=== PATIENT | female | born 1950 | race Caucasian/White ===

== ENCOUNTER → 2019-06-03 | Outpatient (CLI) | payer MEDICARE ==
[~2019-06-03] MED LIST: REGADENOSON 0.4 MG/5 ML DISP.SYRIN. IV ONE
--- NOTE | 2019-06-03 09:54 | CARD ---
MR#: [id number] Date of Study: 06/03/2019 Ordering Physician: FAZAL SIBLEY, Referring Physician: FAZAL SIBLEY, Tech: Radha Flores APPROVED REPORT EXAM: Two-dimensional and M-mode echocardiogram with Doppler and color Doppler. Other Information Quality : AverageHR: 91bpm INDICATION Arrhythmia 2D DIMENSIONS RVDd3.2 (2.9-3.5cm)Left Atrium(2D)3.5 (1.6-4.0cm) IVSd1.2 (0.7-1.1cm)Aortic Root(2D)2.2 (2.0-3.7cm) LVDd4.1 (3.9-5.9cm)LVOT Diameter2.5 (1.8-2.4cm) PWd1.0 (0.7-1.1cm)LVDs3.0 (2.5-4.0cm) FS (%) 28.0 %SV41.1 ml LVEF(%)54.7 (>50%) Aortic Valve AoV Peak Dawson.180.9cm/sAoV VTI33.5cm AO Peak GR.13.1mmHgLVOT Peak Dawson.142.1cm/s LVOT VTI 32.13cmAO Mean GR.6mmHg YUMIKO (VMAX)3.06cx2YPN (VTI)4.65cm2 Mitral Valve MV E Jukosizl58.5cm/sMV DECEL EIPR938gy MV A Qbuqelmc47.9cm/sMV E Mean Gr.2mmHg MV JQS71ioO/A Ratio0.9 MVA (PHT)3.03cm2 TDI E/Lateral E'9.0E/Medial E'12.0 Pulmonary Valve PV Peak Hegcctxx857.0cm/sPV Peak Grad.5mmHg Tricuspid Valve TR P. Ayfckdvx650hw/sRAP WXATGGJE1iyPr TR Peak Gr.87soWiEWFY22aePf Pulmonary Vein S1 Iwxqshrb15.0cm/sD2 Qsprhzky88.7cm/s LEFT VENTRICLE The left ventricle is normal size. There is borderline to mild concentric left ventricular hypertroph y. The left ventricular systolic function is normal. The Ejection Fraction is 55%. There is normal LV segmental wall motion. Transmitral Doppler flow pattern is Grade I-abnormal relaxation pattern. RIGHT VENTRICLE The right ventricle is normal size. There is normal right ventricular wall thickness. The right ventr icular systolic function is normal. ATRIA The left atrium size is normal. The right atrium size is normal. The interatrial septum is intact wit h no evidence for an atrial septal defect or patent foramen ovale as noted on 2-D or Doppler imaging. AORTIC VALVE The aortic valve is thickened but opens well. Doppler and Color Flow revealed no significant aortic r egurgitation. There is no significant aortic valvular stenosis. MITRAL VALVE The mitral valve is normal in structure and function. There is no evidence of mitral valve prolapse. There is no mitral valve stenosis. Doppler and Color Flow revealed no mitral valve regurgitation note d. TRICUSPID VALVE The tricuspid valve is normal in structure and function. Doppler and Color Flow revealed trace tricus pid regurgitation with an estimated PAP of 25 mmHg. There is no tricuspid valve stenosis. PULMONIC VALVE The pulmonic valve is not well visualized. Doppler and Color Flow revealed trace pulmonic valvular re gurgitation. GREAT VESSELS The aortic root is normal in size. The ascending aorta is normal in size. The IVC is normal in size a nd collapses >50% with inspiration. PERICARDIAL EFFUSION There is no evidence of significant pericardial effusion. Critical Notification Critical Value: No <Conclusion> The left ventricular systolic function is normal. The Ejection Fraction is 55%. Transmitral Doppler flow pattern is Grade I-abnormal relaxation pattern. Trace tricuspid regurgitation with an estimated PAP of 25 mmHg. There is no evidence of significant pericardial effusion. Signed by : Fazal Sibley, Electronically Approved : 06/03/2019 09:54:07
--- NOTE | 2019-06-03 12:54 | RAD ---
MR#: [id number] Date of Study: 06/03/2019 Ordering Physician: FAZAL ROBERT, Referring Physician: ASHLEY LEAVITT Tech: RT Jessica (R) (N) APPROVED REPORT Test Type: Pharmacological Stress Nurse/Tech: Amber Hamilton RN Test Indications: chest pain Cardiac History: HTN, DM Medications: See Electronic Medical Record Medical History: See Electronic Medical Record Resting ECG: SR Resting Heart Rate: 53 bpm Resting Blood Pressure: 140/85mmHg Pretest Chest Pain: None Nurse/Tech Notes Lungs CTA, S1S2 Consent: The procedure was explained to the patient in lay terms. Informed consent was witnessed. Jimmy eout was entered into [employer]. History and Stress Test performed by Amber Hamilton RN Pharm. Details Pharmacologic stress testing was performed using 0.4mg per 5ml of regadenoson given intravenously ove r 7-10 seconds. Stress Symptoms Headache, SOA, Nausea/vomiting POST EXERCISE Reason for Termination: Infusion complete Max HR: 117 bpm Max Blood Pressure: 192/79mmHg Blood Pressure response to exercise: Normal blood pressure response during stress. Heart Rate response to exercise: normal response Chest Pain: No. Arrhythmia: No. INTERPRETATION Stress EKG Conclusion: The resting EKG shows a sinus rhythm with LVH and nonspecific ST-T wave change s. The stress EKG shows no significant changes from baseline. No EKG evidence of stressed induced ischemia. Imaging Protocol IMAGE PROTOCOL: Rest Tc-99m/stress Tc-99m 1 day Rest: Stress: Viability: Radiopharm.Tc99m JfzhwkuliAm40a Sestamibi Mdnp40vJj 31mCi Duration 13min. 13min. Img Date 06/03/2019 06/03/2019 Inj-Img Autg08ajw. 60min. Rest Admin Site:IV - Right ForearmAdministrator:JING Ron, ARRT (R)(N) Stress Admin Site: IV - Right ForearmAdministrator: Jorge Ferguson RT (R)(N) STRESS DATA End Diast. Vol.36.0mlLVEDV index BSA22.0ml End Syst. Vol.3.0mlLVESV index BSA2.0ml Myocardial Mass79.0gEject. Jgnfqyzm65.0% Stress Scores Regional WT0.00Summed WT11.00 Regional WM0.00Summed WM0.00 LV Perfusion The stress scans showed no significant defects. The rest scans showed no significant defects. Nuclear imaging shows no reversible ischemia or infarct. Wall Motion Left ventricular systolic function is normal with no regional wall motion abnormalities and an ejecti on fraction of greater than 75%. LV Perf. Quant 17 Seg. SSS0.00 17 Seg. SRS0.00 17 Seg. SDS0.00 Stress Defect Extent (% LAD)0.00Rest Defect Extent (% LAD)0.00Rev. Defect Extent (% LAD)0.00 Stress Defect Extent (% LCX) 0.00Rest Defect Extent (% LCX)0.00Rev. Defect Extent (% LCX)0.00 Stress Defect Extent (% RCA)0.00Rest Defect Extent (% RCA)0.00Rev. Defect Extent (% RCA)0.00 Stress Defect Extent (% JOHN)0.00Rest Defect Extent (% JOHN)0.00Rev. Defect Extent (% JOHN)0.00 Conclusion 1. No EKG evidence of stress-induced ischemia. 2. Nuclear imaging shows no reversible ischemia or infarct. 3. Normal left ventricular systolic function with an ejection fraction of greater than 75%. 4. Low risk Lexiscan nuclear stress test. Signed by : Michael Rosenbaum MD Electronically Approved : 06/03/2019 12:54:08
== END ==
LOC: NM 09:14
PROVIDERS: ATTEND Internal Medicine Cardiovascular Disease
DX: I51.7 Cardiomegaly (principal); I49.9 Cardiac arrhythmia, unspecified
CPT/HCPCS: 78452; 93017; 93306; J2785

== ENCOUNTER → 2019-07-15 | Outpatient (CLI) | payer MEDICARE ==
[~2019-07-15] MED LIST changes: +ACET500T68 PO; +ALPR0.5T PO; +APIX5TAB PO; +CYCL10TA2 PO; +FLUO40CA2 PO; +HYDR50TA6 PO; +LISI-334 PO; +METF500T16 PO; +METO50TA4 PO; +MULT400C3 PO; +POLY17PO29 PO; -REGADENOSON 0.4 MG/5 ML DISP.SYRIN. IV ONE; +SIMV20TA18 PO
== END | disposition home or self-care (01) ==
LOC: LAB 13:49
PROVIDERS: ATTEND Internal Medicine Cardiovascular Disease
DX: Z03.818 Encounter for observation for suspected exposure to other biological agents ruled out (principal); I49.5 Sick sinus syndrome
CPT/HCPCS: 36415; 87635

== ENCOUNTER 2019-07-19 07:07 | Observation (INO) | payer MEDICARE ==
[2019-07-19] VITALS (20 sets, daily range): BP systolic 87–150; BP diastolic 47–92
[~2019-07-19] VITALS: Ht 152.4 cm; Wt 67.0 kg
[2019-07-19 07:43] LABS: HEMATOCRIT 39.8 % (36.0-47.0); HEMOGLOBIN 13.8 g/dL (12.0-15.5); RED BLOOD COUNT 4.52 x10^6/uL (3.50-5.40); RED CELL DISTRIBUTION WIDTH 13.4 % (11.5-14.5); WHITE BLOOD COUNT 9.5 x10^3/uL (4.0-11.0)
[2019-07-19] MEDS ORDERED: BACITRACIN 50,000 UNIT in IV NORMAL SALINE 250ML 250 ML IRR ONE (07:45)
--- NOTE | 2019-07-19 07:45 | EKG ---
[facility] [address] [place] [address] Test Date: 2019-07-19 Test Time: 07:40:14 Pat Name: MAGDA GARCIA Department: Room: Gender: F Automation Manager: : 1950 Requested By: FAZAL ROBERT Order Number: [id number] Reading MD: Michael Rosenbaum Measurements Intervals [place] Rate: 79 P: 242 [place]: 116 QRS: -38 QRSD: 112 T: 71 QT: 426 QTc: 490 Interpretive Statements SINUS RHYTHM LEFT ANTERIOR FASCICULAR BLOCK INCOMPLETE RIGHT BUNDLE BRANCH BLOCK LVH WITH REPOLARIZATION ABNORMALITY PROLONGED QT Electronically Signed On 07-19-2019 11:04:35 CDT by Michael Rosenbaum
[2019-07-19] MEDS ORDERED: LIDOCAINE 2%/EPI 1:100,000 20 ML VIAL. ONE (07:46)
[2019-07-19] MEDS ORDERED: MIDAZOLAM HCL/PF 5 MG/5 ML VIAL. ONE (07:46)
[2019-07-19] MEDS ORDERED: fentaNYL PF VIAL 100 MCG/2 ML VIAL ONE (07:46)
[2019-07-19] MEDS ORDERED: ceFAZolin SODIUM IV Push 1 GM VIAL. IVP ONE ×3 (07:47→15:30)
[2019-07-19] MEDS ORDERED: METF500T16 PO (07:53)
[2019-07-19] MEDS ORDERED: POLY17PO29 PO (07:53)
[2019-07-19] MEDS ORDERED: ACET500T68 PO (07:53)
[2019-07-19] MEDS ORDERED: SIMV20TA18 PO (07:53)
[2019-07-19] MEDS ORDERED: FLUO40CA2 PO (07:53)
[2019-07-19] MEDS ORDERED: METO50TA4 PO (07:53)
[2019-07-19] MEDS ORDERED: CYCL10TA2 PO (07:53)
[2019-07-19] MEDS ORDERED: HYDR50TA6 PO (07:53)
[2019-07-19] MEDS ORDERED: LISI-334 PO (07:53)
[2019-07-19] MEDS ORDERED: APIX5TAB PO (07:53)
[2019-07-19 07:54] LABS: PROTHROMBIN TIME PATIENT 13.1 SEC (11.7-14.0)
[2019-07-19] MEDS ORDERED: ALPR0.5T PO (07:54)
[2019-07-19 07:56] LABS: CALCIUM 9.6 mg/dL (8.5-10.1); CREATININE 0.9 mg/dL (0.6-1.0); GFR 62.1; POTASSIUM 3.2 mmol/L (3.5-5.1)
[2019-07-19] MEDS ORDERED: LIDOCAINE 2%/EPI 1:100,000 20 ML VIAL. IJ ONE (08:15)
[2019-07-19] MEDS ORDERED: fentaNYL PF VIAL 100 MCG/2 ML VIAL IV ONE (08:15)
[2019-07-19] MEDS ORDERED: MIDAZOLAM HCL/PF 5 MG/5 ML VIAL. IV ONE (08:15)
--- NOTE | 2019-07-19 09:41 | PDOC ---
MODERATE SEDATION ASSESSMENT RISKS/ALTERNATIVES Risks/Alternatives Risks and alternatives of this type of sedation and procedure discussed with: RISK/ALTERNATIVES: Patient H & P ON CHART H & P H & P on chart and reviewed for co-morbid conditions and appropriate labs. H&P ON CHART: Yes STATUS PREG STATUS ASSESSED: N/A MEDS/ALLERGIES REVIEWED Meds/Allergies Reviewed Medications and Allergies including time and route of recently administered narcotics and sedatives. MEDS/ALLERGIES REVIEWED: Yes ASA RATING ASA RATING: III AIRWAY ASSESSMENT Airway Assessment Airway patency, oral function limitations, presence of caps, crowns, dentures, partials, and ability to extend neck assessed. AIRWAY ASSESSMENT: Yes MALLAMPATI SCORE MALLAMPATI SCORE: II PRE-SEDATION ASSESSMENT PRE-SEDATION ASSESSMENT: Yes FAZAL ROBERT MD July 19, 2019 09:41
[2019-07-19] MEDS ORDERED: NO ANTICOAGULANT THERAPY. MC PRN (09:45)
--- NOTE | 2019-07-19 09:55 | NUR ---
The patient, MAGDA GARCIA, 69 y/o, F admitted by FAZAL ROBERT MD, was given written information regarding hospital policies, unit procedures and contact persons. Valuables were checked and left at bedside with patient. Educated patient on s/p PPm instructions for inpatient. Patient verbalized understanding. Pgd admitting for orders to resume home medications. Pending return call
--- NOTE | 2019-07-19 09:59 | CARD ---
MR#: [id number] Date of Study: 07/19/2019 Ordering Physician: FAZAL SIBLEY, Referring Physician: FAZAL SIBLEY, Tech: APPROVED REPORT PROCEDURES Implantation of Medtronic dual-chamber permanent pacemaker Sedation Time: 70 Minutes Fluoro Time: 1.9 Minutes Dose: 2.60 Gycm2 INDICATIONS Tachycardia-bradycardia syndrome, sick sinus syndrome PROCEDURE After explaining the risks, benefits, and alternative options, informed consent was obtained from the patient. The patient was brought to the cardiac catheterization lab and the left chest and shoulder were prepp ed and draped in a sterile manner. 30 cc of 2% lidocaine was infiltrated into the skin and subcutaneous tissues for local anesthesia. A n incision was made over the left infraclavicular fossa and using blunt dissection and cautery of poc ket was created. Venous access was obtained the left subclavian vein and 9 and 7 Tong[place] sheaths were inserted. A Medtronic bipolar active fixation right ventricular lead model 4076, serial number [id number] was advanced under fluoroscopic guidance and the tip was positioned in the right ventricular apex. Subse quently, a Medtronic bipolar active fixation right atrial lead model 4076, serial number [id number] was positioned in the right atrial appendage under fluoroscopic guidance. The leads were secured int o place and were attached to a Medtronic dual-chamber permanent pacemaker generator model W3DR01, ser ial number [id number]. This was placed in the pocket that was subsequently closed in 3 layers. Hemo stasis was secured. The right ventricular lead showed a sensing amplitude of 7.9 mV, impedance of 841 ohms and a threshol d of 0.5 V. The right atrial lead showed a sensing amplitude of 1.8 mV, impedance of 632 ohms and a threshold of 0.4 V. Patient tolerated the procedure well. There were no immediate complications. CONCLUSION Successful implantation of Medtronic dual-chamber permanent pacemaker for tachycardia-bradycardia, si ck sinus syndrome. Signed by : Fazal Sibley, Electronically Approved : 07/19/2019 09:59:11
--- NOTE | 2019-07-19 10:15 | RAD ---
PORTABLE CHEST 1V History: Post pacemaker Comparison: None. Findings: Single view of the chest is submitted. There is dual lead left electronic cardiac device. Distal lead is closer to the ventricular apex and proximal lead probably in the region of the right atrium. No pneumothorax identified. There is no dependent pleural fluid or lobar consolidation. Heart size is within normal limits given technique. There is atherosclerotic calcification near aortic arch. Impression: 1. There is dual lead left electronic cardiac device, no pneumothorax identified by radiograph. Electronically signed by: Kevin Kaur MD (07/19/2019 10:12 AM) [id number]
[2019-07-19] MEDS ORDERED: ALPRAZolam 0.5 MG TABLET PO PRN (12:00)
[2019-07-19] MEDS ORDERED: CYCLOBENZAPRINE 10 MG TABLET. PO PRN (12:00)
[2019-07-19] MEDS ORDERED: ACETAMINOPHEN 500 MG TABLET PO PRN (12:00)
[2019-07-19] MEDS ORDERED: MULT400C3 PO (12:56)
[2019-07-19] MEDS: oxyCODONE/APAP 5/325 1 TAB TABLET PO PRN ×2 (14:53→20:44)
[2019-07-19] MEDS: metFORMIN 500 MG TABLET PO SCH (17:00)
[2019-07-19] MEDS ORDERED: SIMVASTATIN 20 MG TABLET PO SCH (21:00)
[2019-07-20 02:18] VITALS: BP 138/59
[2019-07-20 07:00] VITALS: BP 134/65
[2019-07-20] MEDS: metFORMIN 500 MG TABLET PO SCH (08:00)
--- NOTE | 2019-07-20 08:20 | RAD ---
EXAM: Chest, 2 views. HISTORY: Pacemaker placement. COMPARISON: 07/19/2019 FINDINGS: 2 views of chest are obtained. There is a dual lead left cardiac pacemaker in expected position. There is no pneumothorax. There is no infiltrate or pleural effusion. The heart is normal in size. There is suspected right upper lobe pleural parenchymal scarring. IMPRESSION: 1. Dual lead left cardiac pacemaker in expected position. 2. No acute pulmonary finding. Electronically signed by: Poonam Segal MD (07/20/2019 8:17 AM) [id number]
[2019-07-20] MEDS ORDERED: METOPROLOL SUCC 24HR ER 50 MG TAB.ER.24H. PO SCH (09:00)
[2019-07-20] MEDS ORDERED: POLYETHYLENE GLYCOL 3350 17 GM PACKET. PO SCH (09:00)
[2019-07-20] MEDS ORDERED: FLUoxetine HCL 20 MG CAPSULE PO SCH (09:00)
[2019-07-20] MEDS ORDERED: hydroCHLOROthiazide 25 MG TABLET PO SCH (09:00)
[2019-07-20] MEDS ORDERED: LISINOPRIL 20 MG TABLET PO SCH (09:00)
--- NOTE | 2019-07-20 10:04 | PDOC3 ---
CHERI DAILEY SHREDDING SPECIALIST 07/20/19 1004: Discharge Summary Visit Information Date of Admission: July 19, 2019 Date of Discharge: July 20, 2019 Admitting Diagnosis: Tachy-evelia syndrome, SSS, PAFIB Final Diagnosis Tachy-evelia syndrome, SSS, PAFIB, S/P PPM Brief Hospital Course Allergies Allergies Coded Allergies Type Severity Reaction Last Updated Verified No Known Drug Allergies 06/03/19 No Vital Signs Vital Signs Date Time Temp Pulse Resp B/P (MAP) Pulse Ox O2 Delivery O2 Flow Rate FiO2 07/20/19 08:48 84 134/65 07/20/19 08:00 Room Air 07/20/19 07:00 98.1 18 96 98.1 07/19/19 09:30 2.0 Lab Results Laboratory Tests Test 07/19/19 07:35 07/19/19 17:05 07/19/19 20:30 07/20/19 07:44 White Blood Count 9.5 x10^3/uL (4.0-11.0) Red Blood Count 4.52 x10^6/uL (3.50-5.40) Hemoglobin 13.8 g/dL (12.0-15.5) Hematocrit 39.8 % (36.0-47.0) Mean Corpuscular Volume 88 fL (79-100) Mean Corpuscular Hemoglobin 31 pg (25-35) Mean Corpuscular Hemoglobin Concent 35 g/dL (31-37) Red Cell Distribution Width 13.4 % (11.5-14.5) Platelet Count 260 x10^3/uL (140-400) Prothrombin Time 13.1 SEC (11.7-14.0) Prothromb Time International Ratio 1.0 (0.8-1.1) Sodium Level 127 mmol/L (136-145) Potassium Level 3.2 mmol/L (3.5-5.1) Chloride Level 89 mmol/L (98-107) Carbon Dioxide Level 31 mmol/L (21-32) Anion Gap 7 (6-14) Blood Urea Nitrogen 23 mg/dL (7-20) Creatinine 0.9 mg/dL (0.6-1.0) Estimated GFR (Cockcroft-Gault) 62.1 Glucose Level 114 mg/dL (70-99) Calcium Level 9.6 mg/dL (8.5-10.1) Glucose (Fingerstick) 70 mg/dL (70-99) 211 mg/dL (70-99) 124 mg/dL (70-99) Laboratory Tests Test 07/19/19 17:05 07/19/19 20:30 07/20/19 07:44 Glucose (Fingerstick) 70 mg/dL (70-99) 211 mg/dL (70-99) 124 mg/dL (70-99) Brief Hospital Course Ms. Chun is a 69 old female admitted for symptomatic SSS and planned PPM placement. She had a successful implantation of Medtronic dual-chamber permanent pacemaker for tachycardia-bradycardia, sick sinus syndrome. Repeat device interrogation is WNL parameters and no immediate [id number] with PPM. VSS, SR without significant ectopies. AOx3, no CP, SOA and surgical pain is controlled. LUE sling is in place. VSS. Left chest surgical incision site is intact with very minute serosanguinous ooze, reinforced with steristrips. No erythema or swelling. Neurovascular status to LUE intact. She is to continue her home meds with eliquis to restart in 2 days as I explained to her. PPM post op care reviewed. Mild hypokalemia and replaced. Mild hyponatremia noted from initial lab and will obtain repeat BMP tomorrow as an outpt. FR has been discussed. She is to have a wound check in 2 weeks. Discharge Information Condition at Discharge: Stable Follow Up: Weeks (2) Disposition/Orders: D/C to Home w/ HH Scheduled Alprazolam (Xanax) 0.5 Mg Tablet, 0.25 MG PO DAILY for anxiety, Ref 0 (Reported) Entered as Reported by: JULIA MCCARTHY on 07/19/19753 Last Taken: Unknown Dose on 07/19/19 Last Action: Edited on 07/19/19 1255 by HATTIE TOM Apixaban (Eliquis) 5 Mg Tablet, 5 MG PO BID for blood thinner, (Reported) Entered as Reported by: JULIA MCCARTHY on 07/19/19752 Last Taken: Unknown Dose on 07/15/19 Last Action: New Order on 07/19/19752 by JULIA MCCARTHY Fluoxetine Hcl (Fluoxetine Hcl) 40 Mg Capsule, 1 CAP PO DAILY for depression, #30 Ref 2 (Reported) Entered as Reported by: JULIA MCCARTHY on 07/19/19752 Last Taken: Unknown Dose on 07/18/19 Last Action: Converted on 07/19/191146 by Jacqueline Shaw Hydrochlorothiazide (Hydrochlorothiazide Tablet) 50 Mg Tablet, 50 MG PO DAILY for DIURETIC, Ref 0 (Reported) Entered as Reported by: JULIA MCCARTHY on 07/19/19752 Last Taken: Unknown Dose on 07/18/19 Last Action: Converted on 07/19/191146 by Jacqueline Shaw Lisinopril (Lisinopril) 20 Mg Tablet, 1 TAB PO BID for HTN, #30 Ref 5 (Reported) Entered as Reported by: JULIA MCCARTHY on 07/19/19752 Last Taken: Unknown Dose on 07/19/19 Last Action: Edited on 07/19/191254 by HATTIE TOM Metformin Hcl (Metformin Hcl) 500 Mg Tablet, 500 MG PO BIDWMEALS for ANTI- DIABETIC, Ref 0 (Reported) Entered as Reported by: JULIA MCCARTHY on 07/19/19752 Last Taken: Unknown Dose on 07/18/19 Last Action: Continued on 07/19/191146 by Jacqueline Shaw Metoprolol Succinate (Toprol XL) 50 Mg Tab.er.24h, 50 MG PO DAILY for FOR HYPERTENSION, (Reported) Entered as Reported by: JULIA MCCARTHY on 07/19/19752 Last Taken: Unknown Dose on 07/19/19 Last Action: Continued on 07/19/191146 by Jacqueline Shaw Multivit-Min/Folic Acid/Vit K1 (Multi For Her 50 Plus Softgel) 1 Each Capsule, 1 EACH PO DAILY for supplement, (Reported) Entered as Reported by: HATTIE TOM on 07/19/19 1256 Last Action: New Order on 07/19/191255 by HATTIE TOM Polyethylene Glycol 3350 (Miralax) 17 Gm Powd.pack, 1 PACKET PO DAILY for constipation for 2 Days, #2 Ref 0 (Reported) dissolve in water Entered as Reported by: JULIA MCCARTHY on 07/19/19752 Last Taken: Unknown Dose on 07/18/19 Last Action: Continued on 07/19/191146 by Jacqueline Shaw Simvastatin (Simvastatin) 20 Mg Tablet, 1 TAB PO QHS for cholesterol, #30 Ref 5 (Reported) Entered as Reported by: JULIA MCCARTHY on 07/19/19752 Last Taken: Unknown Dose on 07/18/19 Last Action: Continued on 07/19/191146 by Jacqueline Shaw Scheduled PRN Acetaminophen (Acetaminophen) 500 Mg Tablet, 1 TAB PO PRN Q6HRS PRN for pain or fever for 15 Days, #60 Ref 0 (Reported) Entered as Reported by: JULIA MCCARTHY on 07/19/19752 Last Action: Continued on 07/19/191146 by Jacqueline Shaw Cyclobenzaprine Hcl (Cyclobenzaprine Hcl) 10 Mg Tablet, 1 TAB PO PRN TID PRN for MUSCLE SPASMS, #90 (Reported) Entered as Reported by: JULIA MCCARTHY on 07/19/19752 Last Action: Continued on 07/19/191146 by Jacqueline Shaw Patient Instructions Patient Instructions Must know & what to expect after device implant: 1. Your surgical dressing should be removed prior to discharge from the hospital, but allow the steri- strips to fall off naturally. 2. Activity restrictions: DO NOT raise arm above shoulder level, lift anything heavier than a gallon of milk, and no push or pull motions such as vacuuming/lawn mowing, no swinging motions (golf), etc for 4 weeks. 3. It is OK to use a cell phone or other electronic devices just be sure you do not store it in a breast pocket on the side where the device was placed. 4. Device will be interrogated prior to your discharge from the hospital and then every 3 months for defibrillators and every 6 months for pacemakers. You may be asked to have your device checked remotely from home as well, but this will depend on your particular physicians preference. 5. You may remove the arm immobilizer the day after device placement. Wear the arm immobilizer/splint at night (during sleep times) for 2 week to prevent unintended arm movement that can cause lead dislodgement. 6. Do not drive for one week as the task of driving may lead to unintended arm motion that may cause lead dislodgement. The seatbelt will also rub against the incision site & cause irritation. 7. It is our recommendation that you utilize Tylenol at home for pain control. You need to call our office if you are having uncontrollable pain at the incision site. 8. Keep your incision clean and dry. It is OK to shower. DO NOT submerge in bath, pool, or hot tub, until cleared by your doctor, as this could lead to increase risk of infection.. It is OK to use regular soap just do not scrub the incision site. Water spray from shower should not directly hit the incision. Be sure to blot dry not rub. 9. Inspect your incision daily. If you notice any increased redness, swell ing, or drainage, or if you start running a fever, call the office immediately. The number is [phone]. 10. For women, if you need to protect against irritation from the bra straps, you can place a piece of gauze over the incision site for cushion. Please be sure to tape it loosely to allow air to the site & remove the gauze when you remove the bra. 11. Be sure to carry your device identification information card in your wallet/purse at all times. 12. It is OK to go through security at the airport with your device, but be sure to let the TSA know prior to proceeding as the security settings change depending on varying factors. Please do whatever is requested by security at that time. 13. Some of the newer devices may be MRI compatible but, currently, the use of these devices is not widespread, so you likely will not be able to have an MRI. Please clarify this with your physician. If at any time, you feel lightheaded or dizzy/faint, stop what you are doing & lie down immediately. If you are driving, get to the side of the road quickly, turn your car off & call 911 on your cell phone. DO NOT continue to drive as this may cause an accident that seriously injures yourself &/or others. Call the office at [phone] for any questions or concerns. AFZAL ROBERT MD 07/20/19 1312: Discharge Summary Brief Hospital Course Brief Hospital Course Patient seen and examined. Agree with BEAUT[facility] CULTURIST APPRENTICE's assessment and plan. s/p successful permanent pacemaker implantation yesterday for tachycardia-bra dycardia syndrome. Incision looks good, pacemaker interrogation within normal limits and chest x- ray without any pneumothorax. Agree with repeating basic metabolic profile to monitor hyponatremia. Patient was advised on fluid restriction. Resume Eliquis in 2 days. We will consider antiarrhythmic therapy based on arrhythmia burden on next pacemaker interrogation. Discharge Information Scheduled Alprazolam (Xanax) 0.5 Mg Tablet, 0.25 MG PO DAILY for anxiety, Ref 0 (Reported) Entered as Reported by: JULIA MCCARTHY on 07/19/19753 Last Taken: Unknown Dose on 07/19/19 Last Action: Edited on 07/19/19 125 by HATTIE TOM Apixaban (Eliquis) 5 Mg Tablet, 5 MG PO BID for blood thinner, (Reported) Entered as Reported by: JULIA MCCARTHY on 07/19/19752 Last Taken: Unknown Dose on 07/15/19 Last Action: New Order on 07/19/19752 by JULIA MCCARTHY Fluoxetine Hcl (Fluoxetine Hcl) 40 Mg Capsule, 1 CAP PO DAILY for depression, #30 Ref 2 (Reported) Entered as Reported by: JULIA MCCARTHY on 07/19/19752 Last Taken: Unknown Dose on 07/18/19 Last Action: Converted on 07/19/191146 by aJcqueline Shaw Hydrochlorothiazide (Hydrochlorothiazide Tablet) 50 Mg Tablet, 50 MG PO DAILY for DIURETIC, Ref 0 (Reported) Entered as Reported by: JULIA MCCARTHY on 07/19/19752 Last Taken: Unknown Dose on 07/18/19 Last Action: Converted on 07/19/191146 by Jacqueline Shaw Lisinopril (Lisinopril) 20 Mg Tablet, 1 TAB PO BID for HTN, #30 Ref 5 (Reported) Entered as Reported by: JULIA MCCARTHY on 07/19/19752 Last Taken: Unknown Dose on 07/19/19 Last Action: Edited on 07/19/191254 by HATTIE TOM Metformin Hcl (Metformin Hcl) 500 Mg Tablet, 500 MG PO BIDWMEALS for ANTI- DIABETIC, Ref 0 (Reported) Entered as Reported by: JULIA MCCARTHY on 07/19/19752 Last Taken: Unknown Dose on 07/18/19 Last Action: Continued on 07/19/191146 by Jacqueline Shaw Metoprolol Succinate (Toprol XL) 50 Mg Tab.er.24h, 50 MG PO DAILY for FOR HYPERTENSION, (Reported) Entered as Reported by: JULIA MCCARTHY on 07/19/19752 Last Taken: Unknown Dose on 07/19/19 Last Action: Continued on 07/19/191146 by Jacqueline Shaw Multivit-Min/Folic Acid/Vit K1 (Multi For Her 50 Plus Softgel) 1 Each Capsule, 1 EACH PO DAILY for supplement, (Reported) Entered as Reported by: HATTIE TOM on 07/19/191255 Last Action: New Order on 07/19/191255 by HATTIE TOM Polyethylene Glycol 3350 (Miralax) 17 Gm Powd.pack, 1 PACKET PO DAILY for constipation for 2 Days, #2 Ref 0 (Reported) dissolve in water Entered as Reported by: JULIA MCCARTHY on 07/19/19752 Last Taken: Unknown Dose on 07/18/19 Last Action: Continued on 07/19/191146 by Jacqueline Shaw Simvastatin (Simvastatin) 20 Mg Tablet, 1 TAB PO QHS for cholesterol, #30 Ref 5 (Reported) Entered as Reported by: JULIA MCCARTHY on 07/19/19752 Last Taken: Unknown Dose on 07/18/19 Last Action: Continued on 07/19/191146 by Jacqueline Shaw Scheduled PRN Acetaminophen (Acetaminophen) 500 Mg Tablet, 1 TAB PO PRN Q6HRS PRN for pain or fever for 15 Days, #60 Ref 0 (Reported) Entered as Reported by: JULIA MCCARTHY on 07/19/19752 Last Action: Continued on 07/19/191146 by Jacqueline Shaw Cyclobenzaprine Hcl (Cyclobenzaprine Hcl) 10 Mg Tablet, 1 TAB PO PRN TID PRN for MUSCLE SPASMS, #90 (Reported) Entered as Reported by: JULIA MCCARTHY on 07/19/19752 Last Action: Continued on 07/19/191146 by CHERI Huff APRN July 20, 2019 10:04 FAZAL ROBERT MD July 20, 2019 13:12
--- NOTE | 2019-07-20 10:39 | NUR ---
SS following for discharge planning. SS reviewed pt chart and discussed with pt RN. Pt is from home and per RN discharging today. Pt reporting that she had [facility], ; fax [phone]. SS will await home healthcare orders and will proceed accordingly.
[2019-07-20 11:00] VITALS: BP 119/75
--- NOTE | 2019-07-20 12:47 | SNU/HH DC ---
DISCHARGE WITH HOME HEALTH DISCHARGE INFORMATION: Discharge Date: July 20, 2019 Final Diagnosis: SSS. tachy evelia syndrome, S/P PPM Condition on Discharge: Stable CODE STATUS: Code Status: Full HOME HEALTH: Face to Face: I certify this patient is under my care and that I, or a nurse practitioner or physician's certified surgical assistant working with me, had a face to face encounter that meets the physician face to face encounter requirements with this patient on []. RN For Eval/Treatment: Yes (resume bhaskar) Physical Therapy For: Evalulation/Treatment Occupational Therapy For: Evaluation/Treatment Pt Meets Homebound Status: Unsteady balance w/ amb, POST DISCHARGE ORDERS: Activity Instructions for Disc: Activity as tolerated, Other, see below Weight Bearing Status after Di: As tolerated, Other, see below (Use LUE sling if ambulating and when taking a nap or sleeping) Bathing Instructions: No Tub Bath until see Dr. SERRATO AFTER DISCHARGE: ADA Wound/Incision Care: May get incision wet, Other, see below (incision RESOLUTE PROFESSIONAL and redress if oozing) CHECKS AFTER DISCHARGE: Checks after discharge: Check blood press - daily, Check blood sugar, ac/hs Comment: See discharge instructions for post pacemaker FOLLOW-UP: Follow Up With: Dr. Villarreal (cardiology) Martha. 08/03/19 at 10:00am [phone] Additional Instructions: BMP on 07/21/2019 TREATMENT/EQUIPMENT ORDERS: Adaptive Equipment Issued: None CERTIFICATION STATEMENT: Certification Statement: Certification Statement: Based on the above finding, I certify that this patient is confined to the home and needs intermittent penitentiary care, physical therapy and/or speech therapy, or continues to need occupational therapy.~ This patient is under my care, and I have initiated the establishment of the plan of care.~ This patient will be followed by myself or a community physician who will periodically review the plan of care. Home Meds Reported Medications Multivit-Min/Folic Acid/Vit K1 (Multi For Her 50 Plus Softgel) 1 Each Capsule, 1 EACH PO DAILY for supplement, CAP 07/19/19 Alprazolam (XANAX) 0.5 Mg Tablet, 0.25 MG PO DAILY for anxiety, TAB 0 Refills 07/19/19 Acetaminophen (ACETAMINOPHEN) 500 Mg Tablet, 1 TAB PO PRN Q6HRS PRN for pain or fever for 15 Days, #60 TAB 0 Refills 07/19/19 Cyclobenzaprine Hcl (CYCLOBENZAPRINE HCL) 10 Mg Tablet, 1 TAB PO PRN TID PRN for MUSCLE SPASMS, #90 TAB 07/19/19 Polyethylene Glycol 3350 (MIRALAX) 17 Gm Powd.pack, 1 PACKET PO DAILY for constipation for 2 Days, #2 PACKET 0 Refills dissolve in water 07/19/19 Simvastatin (SIMVASTATIN) 20 Mg Tablet, 1 TAB PO QHS for cholesterol, #30 TAB 5 Refills 07/19/19 Apixaban (ELIQUIS) 5 Mg Tablet, 5 MG PO BID for blood thinner, TAB 07/19/19 Lisinopril (LISINOPRIL) 20 Mg Tablet, 1 TAB PO BID for HTN, #30 TAB 5 Refills 07/19/19 Metoprolol Succinate (Toprol XL) 50 Mg Tab.er.24h, 50 MG PO DAILY for FOR HYPERTENSION, TAB.SR 07/19/19 Fluoxetine Hcl (FLUOXETINE HCL) 40 Mg Capsule, 1 CAP PO DAILY for depression, #30 CAP 2 Refills 07/19/19 Hydrochlorothiazide (HYDROCHLOROTHIAZIDE TABLET) 50 Mg Tablet, 50 MG PO DAILY for DIURETIC, TAB 0 Refills 07/19/19 Metformin Hcl (METFORMIN HCL) 500 Mg Tablet, 500 MG PO BIDWMEALS for ANTI-DIAB ETIC, TAB 0 Refills 07/19/19 CHERI DAILEY APRN July 20, 2019 12:47
--- NOTE | 2019-07-20 12:50 | NUR ---
Discharge Note: MAGDA GARCIA S [address] [place] [address] Discharge instructions and discharge home medications reviewed with Patient and a copy given. All questions have been answered and understanding verbalized. The following instructions and handouts were given: pacemaker info, discharge instruction, follow up, lab prescription. Discontinued lines and drains: Peripheral IV intact. Patient discharged to Home w/services with Family Member via Wheelchair at 1250.
[2019-07-20] MEDS ORDERED: POTASSIUM CHLORIDE 20 MEQ TABLET.ER. PO ONE (13:00)
--- NOTE | 2019-07-20 13:36 | NUR ---
SS following up with discharge planning. SS phoned and faxed discharge orders and referral to [facility], ; fax [phone]. Pt's RN notified.
== END 2019-07-20 12:50 | disposition home health service (06) ==
LOC: CCL 07:07 → 2 SOUTH 08:00
PROVIDERS: ADMIT Internal Medicine Cardiovascular Disease; ATTEND Internal Medicine Cardiovascular Disease
DX: I49.5 Sick sinus syndrome (principal); I48.0 Paroxysmal atrial fibrillation; Z79.899 Other long term (current) drug therapy; Z95.0 Presence of cardiac pacemaker
CPT/HCPCS: 33208; 36415; 71045; 71046; 80048; 82962; 85027; 85610; 93005; 96374; 96375; 96376; C1785; C1898; G0378; G0379; J0690; J2250; J3010; J3490; J7050; 99152; 99153; J7030